=== PATIENT | male | born 1990 | race Caucasian/White ===

== ENCOUNTER 2018-07-31 13:00 | Emergency (ER) | payer OTHER ==
[2018-07-31] MEDS ORDERED: KETOROLAC 60 MG/2 ML VIAL IM STA (13:59)
[2018-07-31] MEDS ORDERED: DEXAMETHASONE 10 MG/ML VIAL PO STA (13:59)
--- NOTE | 2018-07-31 14:00 | ED Physician Documentation ---
PD HPI BACK PAIN - Stated complaint Stated Complaint: BACK SPASM - Chief complaint Chief Complaint: Back Pain - History obtained from History obtained from: Patient, Friend - History of Present Illness Timing - onset: Today Timing - duration: Minutes Timing - details: Abrupt onset, Still present Location: Lower, Right, Left Quality: Pain, Spasm, Sharp, Similar to prior episodes Associated symptoms: No: Fever, Weakness, Numbness, Incontinent of urine, Unable to urinate, Hematuria, Incontinent of stool Improves with: Rest, Ice, Position Worsened by: Movement Contributing factors: Other (doing lifting at the gym when symptoms started.) Similar symptoms before: Diagnosis (back spasm) Recently seen: Not recently seen - Additional information Additional information: 28-year-old male was at the gym today doing bench presses when he had the sudden onset of severe low back spasm. He has not been able to get the back spasm under control and is come to the emergency department with back pain and tight muscles. He does feel that he is probably not hydrated right now. He has had similar symptoms previously he is never had it last this long or be this intense. He has also having some numbness down both of his legs. Along the backside of his thighs. He is not having perineal anesthesia and he denies any problem with his bowel or bladder denies any problem with strength. Review of Systems Constitutional: denies: Fever Eyes: denies: Decreased vision Ears: denies: Ear pain Nose: denies: Congestion Throat: denies: Sore throat Respiratory: denies: Cough GI: denies: Abdominal Pain, Nausea, Vomiting, Constipation, Diarrhea : denies: Dysuria Musculoskeletal: reports: Back pain. denies: Neck pain Neurologic: denies: Generalized weakness, Focal weakness, Numbness PD PAST MEDICAL HISTORY - Present Medications Home Medications: Ambulatory Orders Medication Instructions Recorded Confirmed Cyclobenzaprine [Flexeril] 10 mg PO TID PRN #20 tablet 07/31/18 Hydrocodone/Acetaminophen 1 - 2 each PO Q6H PRN #14 tablet 07/31/18 [Hydrocodon-Acetaminophen 5-325] - Allergies Allergies/Adverse Reactions: Allergies Allergy/AdvReac Type Severity Reaction Status Date / Time No Known Drug Allergies Allergy Verified 07/31/18 13:09 PD ED PE NORMAL - Vitals Vital signs reviewed: Yes (hypertensive ) - General General: Alert and oriented X 3, Well developed/nourished, Other (moves slowly clutching the lower back ) - HEENT HEENT: Atraumatic, PERRL, EOMI - Neck Neck: Supple, no meningeal sign - Respiratory Respiratory: No respiratory distress - Back Back: No CVA TTP, No spinal TTP, Other (There is dense spasm to the paraspinous muscles of the lumbar spine from the lower rib cage to the buttocks bilaterally. There is no midline tenderness ) - Derm Derm: Normal color, Warm and dry, No rash - Extremities Extremities: No deformity, No edema - Neuro Neuro: Alert and oriented X 3, instrument lens generator 2-12 intact, No motor deficit, No sensory d eficit, Normal speech Eye Opening: Spontaneous Motor: Obeys Commands Verbal: Oriented GCS Score: 15 - Psych Psych: Normal mood, Normal affect Results - Vitals Vitals: Vital Signs - 24 hr 07/31/ 13:06 Temperature 37 C Heart Rate 94 Respiratory 18 Rate Blood Pressure 127/112 H O2 Saturation 99 Oxygen O2 Source Room air PD MEDICAL DECISION MAKING - ED course Complexity details: considered differential, d/w patient ED course: 28-year-old male in good physical condition has acute lumbar muscle spasm after doing bench pressing and he is mildly dehydrated. He is administered d examethasone 10 mg orally and Toradol 60 mg IM. I have encouraged the patient to hydrate and we will place him on some pain medication and muscle relaxant. Departure - Departure Disposition: 01 Home, Self Care Clinical Impression: Acute lumbar myofascial strain Qualifiers: Encounter type: initial encounter Qualified Code(s): S39.012A - Strain of muscle, fascia and tendon of lower back, initial encounter Condition: Stable Instructions: ED Sprain Strain Lumbar Follow-Up: MO AYALA MD [Primary Care Provider] - Prescriptions: Cyclobenzaprine [Flexeril] 10 mg PO TID PRN #20 tablet PRN Reason: Spasms Hydrocodone/Acetaminophen [Hydrocodon-Acetaminophen 5-325] 1 - 2 each PO Q6H PRN #14 tablet PRN Reason: pain Forms: Activity restrictions
[2018-07-31] MEDS ORDERED: CHERRY SYRUP 10 ML UDC PO ONE (14:15)
[2018-07-31 14:47] VITALS: BP 145/68
== END 2018-07-31 14:48 | disposition home or self-care (01) ==
LOC: ED 13:00
DX: S39.012A Strain of muscle, fascia and tendon of lower back, initial encounter (principal); X50.0XXA Overexertion from strenuous movement or load, initial encounter; Y93.B9 Activity, other involving muscle strengthening exercises; Y92.39 Other specified sports and athletic area as the place of occurrence of the external cause
CPT/HCPCS: 96372; 99283; A9270

== ENCOUNTER 2019-02-10 12:50 | Outpatient (CLI) | payer OTHER | END 2019-02-10 12:51 | disposition home or self-care (01) | LOC: SC 12:50 | PROVIDERS: ATTEND Internal Medicine Pulmonary Disease | DX: R06.83 Snoring (principal); R06.81 Apnea, not elsewhere classified; G47.8 Other sleep disorders; R41.89 Other symptoms and signs involving cognitive functions and awareness; G47.10 Hypersomnia, unspecified; E66.9 Obesity, unspecified; Z68.34 Body mass index [BMI] 34.0-34.9, adult | CPT/HCPCS: 99203; 99212 ==

== ENCOUNTER 2019-05-01 19:58 | Outpatient (CLI) | payer OTHER | END 2019-05-01 19:59 | disposition home or self-care (01) | LOC: SC 19:58 | PROVIDERS: ATTEND Internal Medicine Pulmonary Disease | DX: G47.33 Obstructive sleep apnea (adult) (pediatric) (principal); G47.61 Periodic limb movement disorder; E66.9 Obesity, unspecified; Z68.34 Body mass index [BMI] 34.0-34.9, adult | CPT/HCPCS: 95810 ==